=== PATIENT | male | born 1985 | race African-American/Black ===

== ENCOUNTER → 2021-02-12 14:11 | Outpatient (CLI) | payer BC, SELFPAY ==
--- NOTE | ~2021-02-12 | MR_ITS ---
EXAMINATION: MR wrist RT wo con DATE: 02/12/2021 14:58 INDICATION: Localized swelling, mass and lump at the radial/volar aspect of the wrist with burning pa in radiating to the thumb with lifting and grasping. TECHNIQUE: Magnetic resonance imaging (MRI) of the right wrist was performed without intravenous cont rast. Sequences performed include axial PD-weighted FSE and PD-weighted FS FSE, coronal PD-weighted F S FSE and T1-weighted SE, and sagittal PD-weighted FS FSE and PD-weighted FSE. COMPARISON: None FINDINGS: Intrinsic ligaments: The scapholunate and lunotriquetral ligaments are normal. Triangular fibrocartilage complex (TFCC): The triangular fibrocartilage including its foveal and styloid attachments as well as the dorsal and volar radioulnar ligaments are normal. The ulnar collateral ligament, ulnotriquetral ligament and men iscal homologue are normal. The extensor carpi ulnaris tendon sheath is normal. Extensor wrist: Extensor tendons of the wrist are normal. No tenosynovitis. Flexor wrist: The flexor tendons of the wrist are normal. No abnormality in the carpal tunnel with normal median n erve. Guyon's canal: Guyon's canal including the ulnar nerve and artery are normal. Bones/other: Normal marrow signal. No fracture, erosions, avascular necrosis or abnormal marrow replacing process. Joint spaces are normal with no focal cartilage defects appreciated. There is a 1.7 x 1.0 x 1.2 cm ganglion cyst arising from the volar aspect of the radioscaphoid articulation which situated between the flexor carpi radialis and the abductor hallucis longus tendon which exerts mass effect upon the r adial neurovascular bundle. There is located immediately deep to the marker indicating the lesion of concern. IMPRESSION: 1. The palpable abnormality of concern corresponds to a 1.7 x 1.0 x 1.2 cm ganglion cyst arising from the wrist joint and which exerts mass effect upon the radial neurovascular bundle. Reviewed, dictated and finalized at location A. IMPRESSION: 1. The palpable abnormality of concern corresponds to a 1.7 x 1.0 x 1.2 cm gang lion cyst arising from the wrist joint and which exerts mass effect upon the ra dial neurovascular bundle.
== END ==
PROVIDERS: PCP Family Medicine; Visit Provider Orthopaedic Surgery
DX: M25.531 Pain in right wrist (principal); R22.31 Localized swelling, mass and lump, right upper limb; M67.431 Ganglion, right wrist
CPT/HCPCS: 73221

== ENCOUNTER 2021-09-01 21:33 | Emergency (ER) | payer BC, SELFPAY ==
--- NOTE | ~2021-09-01 | XR_ITS ---
EXAMINATION: XR shoulder LT min 2V EXAM DATE: 09/01/2021 23:41 INDICATION: left shoulder injury and pain . TECHNIQUE: The following left shoulder projections obtained: frontal projection with internal rotatio n, frontal projection with external rotation, Grashey, and scapular Y view (4+ views). There is no p rior study for comparison. FINDINGS: No evidence of left shoulder rotator cuff calcific tendinosis. Unremarkable left glenoh umeral and acromioclavicular joints. Contour abnormality to the shaft of the left clavicle but report edly patient has no tenderness at this location. There are no acute fractures or dislocations identif ied. There is no subcutaneous gas. The soft tissue is unremarkable. There are no radiopaque forei gn bodies. IMPRESSION: No acute osseous findings. Reviewed, dictated and finalized at location B. 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
[2021-09-01 21:35] VITALS: BP 137/82; PULSE 101; RESP 16; TEMP 37.1; O2SAT 97
[2021-09-01 23:40] VITALS: BP 127/71; PULSE 86; RESP 18; TEMP 37.2; O2SAT 100
[2021-09-02 00:47] VITALS: BP 133/82; PULSE 84; RESP 20; TEMP 36.4; O2SAT 100
--- NOTE | 2021-09-02 01:24 | ED.GENADULT ---
HPI - General Adult General Chief complaint: Extremity Injury, Upper Stated complaint: possible shoulder dislocation-left Time Seen by Provider: 09/02/21 01:00 Source: patient History of Present Illness HPI narrative: 36-year-old male presents [facility] for evaluation of a left shoulder injury. Patient states he was in a friend's garage when he slipped on the wet floor causing him to land on his left shoulder. Patient states there was a deformity of the left shoulder, he could feel that there was an anterior bulge but did not actually look at the shoulder in the mirror. Patient's friend watched a YouTube video and did pull on the patient's left arm. Patient states he did not feel a big pop but did notice that the arm felt better and the bulge did resolve. Related Data Allergies Allergy/AdvReac Type Severity Reaction Status Date / Time lactose Allergy Mild Abdominal Verified 09/02/21 00:50 Pain Review of Systems Review of Systems: APPEARANCE: Well appearing, no pain, no distress, well-nourished. HEAD: normocephalic, atraumatic. MUSCULOSKELETAL: Left shoulder tenderness with range of motion NEURO: Alert. Cranial nerves II through XII intact. Good gait. Good coordination SKIN: Warm, dry. Normal Color All systems reviewed & are unremarkable except as noted in HPI and below PMFSH Past Medical History Medical History Annual physical exam BMI 31.0-31.9,adult Dietary counseling and surveillance (10/09/17) Encounter for HCV screening test for low risk patient Encounter for screening for HIV Ganglion cyst of volar aspect of right wrist Hepatitis A antibody positive Screening for diabetes mellitus Screening for thyroid disorder Screening, lipid Sports physical Family History Family History Father Tobacco abuse Mother Autoimmune disease Social History Social History Smoking status: Never smoker Second hand tobacco smoke exposure: Yes Alcohol intake: current Substance use: never Substance use type: does not use 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 HEAD: normocephalic, atraumatic. NECK: Supple. No adenopathy, no masses. MUSCULOSKELETAL: Self tenderness to the left shoulder. No clavicle tenderness to palpation. No AC tenderness to palpation. No deformity. NEURO: Alert. Cranial nerves II through XII intact. Good gait. Good coordination SKIN: Warm, dry. Normal Color Course Course Emergency Course: Patient was updated the results of his imaging. Patient does describe having a left shoulder subluxation or dislocation. Patient was placed in a shoulder immobilizer and encouraged to have close follow-up with his primary care physician along with orthopedics. All questions and concerns were addressed. Patient was comfortable with the plan for discharge and close follow-up. Vital Signs Vital signs: Vital Signs Temperature 98.8 F 09/01/21 21:35 Pulse Rate 101 H 09/01/21 21:35 Respiratory Rate 16 09/01/21 21:35 Blood Pressure 137/82 09/01/21 21:35 Pulse Oximetry 97 09/01/21 21:35 Temperature 97.6 F 09/02/21 00:47 Pulse Rate 84 09/02/21 00:47 Respiratory Rate 20 09/02/21 00:47 Blood Pressure 133/82 09/02/21 00:47 Pulse Oximetry 100 09/02/21 00:47 Medical Decision Making Vital Signs Vital Signs: Vital Signs Temperature 98.8 F 09/01/21 21:35 Pulse Rate 101 H 09/01/21 21:35 Respiratory Rate 16 09/01/21 21:35 Blood Pressure 137/82 09/01/21 21:35 Pulse Oximetry 97 09/01/21 21:35 Temperature 97.6 F 09/02/21 00:47 Pulse Rate 84 09/02/21 00:47 Respiratory Rate 20 09/02/21 00:47 Blood Pressure
[2021-09-02] MEDS: CYCLOBENZAPRINE HCL 10 MG TABLET PO (01:30)
[2021-09-02] MEDS: ACETAMINOPHEN 325 MG TABLET 650 MG PO (01:30)
== END 2021-09-02 01:37 | disposition home or self-care (01) ==
PROVIDERS: Emergency Provider Emergency Medicine; PCP Family Medicine
DX: S49.92XA Unspecified injury of left shoulder and upper arm, initial encounter (principal); Z77.22 Contact with and (suspected) exposure to environmental tobacco smoke (acute) (chronic); W01.0XXA Fall on same level from slipping, tripping and stumbling without subsequent striking against object, initial encounter
CPT/HCPCS: 73030; 99283; A9270

== ENCOUNTER → 2021-09-26 13:26 | Outpatient (CLI) | payer BC, SELFPAY ==
--- NOTE | ~2021-09-26 | MR_ITS ---
EXAMINATION: MR shoulder LT wo con DATE: 09/26/2021 14:30 INDICATION: Unspecified injury of left shoulder. Left shoulder pain. TECHNIQUE: Magnetic resonance imaging (MRI) of the left shoulder was performed without intravenous co ntrast. Sequences included axial PD-weighted FS FSE, coronal oblique PD-weighted FS FSE and T2-weight ed FS FSE, and sagittal oblique T2-weighted FS FSE and T1-weighted FSE. COMPARISON: Left shoulder radiographs 09/01/2021 FINDINGS: Coracoacromial arch: The acromion undersurface is curved in morphology (type II). There is inferior subluxation of the acr omion with respect to distal clavicle. There is edema-like marrow signal intensity in distal clavicle . There is edema around the acromioclavicular joint capsule. There is widening of coracoclavicular in terval with at least partial tear of coracoclavicular ligament with associated edema. Rotator cuff: The supraspinatus, infraspinatus, teres minor, and subscapularis tendons are normal. No tear. There i s no fatty atrophy of the rotator cuff muscle bellies. Biceps tendon and glenoid labrum: Biceps tendon is in bicipital groove. Intra-articular biceps tendon is normal. The glenoid labrum is normal. Fluid: There is no glenohumeral joint effusion. Bones/cartilage: The glenoid cartilage is normal. There are small subchondral cysts in posterior glenoid. The humeral head cartilage is normal. IMPRESSION: 1. Type III acromioclavicular separation. Reviewed, dictated and finalized at location A. 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
== END ==
PROVIDERS: PCP Family Medicine; Visit Provider Physician Assistant Medical
DX: S43.102A Unspecified dislocation of left acromioclavicular joint, initial encounter (principal)
CPT/HCPCS: 73221

== ENCOUNTER 2022-11-18 18:37 | Emergency (ER) | payer BC, SELFPAY ==
[2022-11-18 18:54] VITALS: BP 146/82; PULSE 80; RESP 14; TEMP 36.8; O2SAT 99
--- NOTE | 2022-11-18 19:15 | ED.URI ---
HPI - URI/Sore Throat General Chief Complaint: Upper Respiratory Infection Stated Complaint: Sore Throat Time Seen by Provider: 11/18/22 19:15 Source: patient, RN notes reviewed and old records reviewed Mode of arrival: ambulatory Limitations: no limitations History of Present Illness HPI Narrative: 37-year-old male presents to the [facility] with complaints of a sore throat for couple of days. Denies any other symptoms. Denies any treatment prior to arrival Onset (ago): day(s) (3-4) Related Data Home Medications Medication Instructions Recorded Confirmed No Home Medications 10/03/21 10/31/21 Allergies Allergy/AdvReac Type Severity Reaction Status Date / Time lactose Allergy Mild Abdominal Verified 11/18/22 18:57 Pain Review of Systems Review of Systems: All systems reviewed & are unremarkable except as noted in HPI and below Constitutional: Constitutional: Reports no additional constitutional complaints Eyes: Eyes: Reports no additional eye complaints ENT: Reports as per HPI and Reports sore throat Cardiovascular: Cardiovascular: Reports no additional cardiovascular complaints, Denies chest pain and Denies dyspnea Respiratory: Respiratory: Reports no additional respiratory complaints, Denies chest congestion, Denies cough and Denies dyspnea Gastrointestinal: Gastrointestinal: Reports no additional gastrointestinal complaints, Denies abdominal pain, Denies nausea and Denies vomiting Musculoskeletal: Musculoskeletal: Reports no additional musculoskeletal complaints Integumentary/Breasts: Skin/Breast: Reports system reviewed and no additional complaints, except as docu Neurologic: Reports system reviewed and no additional complaints, except as documented Psychiatric: Psychiatric: Reports no additional psychiatric complaints Allergic/Immunologic: Allergic/Immunologic: Reports no additional allergic/immunologic complaints PMFSH Past Medical History Medical History Annual physical exam BMI 31.0-31.9,adult BMI 34.0-34.9,adult Dietary counseling and surveillance (10/09/17) Encounter for HCV screening test for low risk patient Encounter for screening for HIV Ganglion cyst of volar aspect of right wrist Hepatitis A antibody positive Screening for diabetes mellitus Screening for thyroid disorder Screening, lipid Separation of left acromioclavicular joint, type 2 Sports physical Family History Family History Father Tobacco abuse Mother Autoimmune disease Social History Social History Second hand tobacco smoke exposure: Yes Alcohol intake: current Substance use: never Substance use type: does not use Living arrangements: with family Occupation/Education: occupation 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 There is no relevant family history pertinent to the patient complaint. Exam Const: General: cooperative, healthy appearing, comfortable, no acute distress, well developed, alert and well nourished Nutritional Appearance: well nourished Orientation/consciousness: patient oriented x3 Limitations: no limitations HENMT: Head: normal to inspection Ears: hearing grossly normal bilaterally, external ears normal, EAC's normal and TM abnormal with fluid behind the TM bilateral; not erythematous Face/Nose/Sinus: Normal external nose present, Normal nares present, Normal nasal mucous membranes and turbinates present and normal facial exam Face and sinus: normal facial exam Mouth: Yes Normal oral and palatal mucosa present, Yes lip normal and Yes moist mucous membranes Throat: posterior oropharynx normal, u
== END 2022-11-18 19:25 | disposition home or self-care (01) ==
PROVIDERS: Emergency Provider Nurse Practitioner; PCP Family Medicine
DX: J02.9 Acute pharyngitis, unspecified (principal); R09.82 Postnasal drip
CPT/HCPCS: 87081; 87880; 99213; G0463

== ENCOUNTER 2024-03-12 20:00 | Emergency (ER) | payer BC, SELFPAY ==
[2024-03-12 20:13] VITALS: BP 121/83; PULSE 86; RESP 20; TEMP 36.8; O2SAT 97
--- NOTE | 2024-03-12 20:31 | ED.WOUNDLAC ---
HPI - Wound/Laceration General Chief Complaint: Wound/Laceration Stated Complaint: drill bit went into thumb Time Seen by Provider: 03/12/24 20:04 Source: patient Mode of arrival: ambulatory Limitations: no limitations History of Present Illness HPI narrative: This is a 39 year old male that presents to the ER for laceration to the left thumb sustained just prior to arrival. Reports the drill bit slipped and cut his left thumb. Unsure of last tetanus vaccination. Denies decreased ROM or numbness. Related Data Allergies Allergy/AdvReac Type Severity Reaction Status Date / Time lactose Allergy Mild Abdominal Verified 03/12/24 20:17 Pain Review of Systems Review of Systems: CONSTITUTIONAL: Denies fever SKIN: reports laceration MUSCULOSKELETAL: Denies joint pain NEUROLOGIC: Denies numbness All systems reviewed & are unremarkable except as noted in HPI and below PMFSH Past Medical History Medical History Annual physical exam BMI 29.0-29.9,adult BMI 31.0-31.9,adult BMI 34.0-34.9,adult Dietary counseling and surveillance (10/09/17) Encounter for HCV screening test for low risk patient Encounter for screening for HIV Ganglion cyst of volar aspect of right wrist Hepatitis A antibody positive Screening for diabetes mellitus Screening for thyroid disorder Screening, lipid Separation of left acromioclavicular joint, type 2 Sports physical Family History Family History Father Tobacco abuse Mother Autoimmune disease Social History Social History Smoking status: Never smoker Second hand tobacco smoke exposure: Yes Alcohol intake: current Substance use: never Substance use type: does not use Do You Feel Safe in your Home?: Yes Lack of Transportation: No Lack of Food: Never True Current Housing: I Have Housing Concerned About Future Housing: No Difficulty Paying Gas/Electric Bills: No Difficulty Paying for Meds: No Currently Unemployed: No Education: High School Diploma/GED Difficulty w/ Childcare or Family Care: No Living arrangements: with family Occupation/Education: occupation 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 HEAD: Normocephalic, atraumatic. EYES: EOMI. EXTREMITIES: Normal range of motion. No edema. Left thumb with 1cm linear laceration into subcutaneous tissue over the interphalangeal joint dorsal surface SKIN: Warm, dry, no rash. NEURO: No focal deficits. Alert and oriented x3. PSYCH: Normal mood and affect Course Course Emergency Course: Patient educated on further wound care Vital Signs Vital signs: Vital Signs Temperature 98.3 F 03/12/24 20:13 Pulse Rate 86 03/12/24 20:13 Respiratory Rate 20 03/12/24 20:13 Blood Pressure 121/83 03/12/24 20:13 Pulse Oximetry 97 03/12/24 20:13 Oxygen Delivery Room Air 03/12/24 20:13 Temperature 98.3 F 03/12/24 20:13 Pulse Rate 86 03/12/24 20:13 Respiratory Rate 20 03/12/24 20:13 Blood Pressure 121/83 03/12/24 20:13 Pulse Oximetry 97 03/12/24 20:13 Oxygen Delivery Room Air 03/12/24 20:13 Procedures Laceration Laceration 1: Date: 03/12/24 Time: 21:31 Site: hand Side (If applicable): left Size (cm): 1 Description: linear Depth: simple, single layer Local Anesthetic: lidocaine 1% Amount of anesthesia used (mL): 1 Pre-repair: wound explored and irrigated ====== Skin Level ====== Skin layer closed with: nylon Size (cm): 4-0 Number of sutures: 1 Technique: simple, interrupted ====== Subcutaneous Layer ====== ====== Muscle
[2024-03-12] MEDS: LIDOCAINE HCL 1% LOCAL INJ 10 ML VIAL INFILTRATE (21:14)
[2024-03-12] MEDS: TETANUS,DIPHTHERIA,AC PERTUSSIS ADULT (0.5 ML) BOOSTRIX IM (21:55)
== END 2024-03-12 22:06 | disposition home or self-care (01) ==
PROVIDERS: Emergency Provider Physician Assistant; PCP Family Medicine
DX: S61.012A Laceration without foreign body of left thumb without damage to nail, initial encounter (principal); Z23 Encounter for immunization; Z77.22 Contact with and (suspected) exposure to environmental tobacco smoke (acute) (chronic); W29.8XXA Contact with other powered hand tools and household machinery, initial encounter
CPT/HCPCS: 12001; 90471; 90715; 99283